=== PATIENT | female | born 1995 | race Caucasian/White ===

== ENCOUNTER → 2018-02-09 | Outpatient (CLI) | payer SELFPAY ==
[~2018-02-09] MED LIST: CYCL-277 PO; NORG1TAB95 PO; SERT-1 PO
== END ==
LOC: LAB 09:40
PROVIDERS: ATTEND Nurse Practitioner Family
DX: J02.9 Acute pharyngitis, unspecified (principal); R50.9 Fever, unspecified
CPT/HCPCS: 87081; 87880